=== PATIENT | male | born 1985 | race American Indian/Alaskan Native ===

== ENCOUNTER 2020-03-06 15:35 | Emergency (ER) | payer SELFPAY ==
[2020-03-06 15:52] VITALS: BP 130/95
[2020-03-06 17:08] LABS: Bilirubin,Urine NEG (Negative); Blood,Urine NEG (Negative); Color,Urine Straw (Yellow); Mucus,Urine FEW /HPF; Protein,Urine <15 mg/dL mg/dL (Negative); Urobilinogen,Urine < 2.0 mg/dL (<2.0)
[2020-03-06 17:10] LABS: Basophils % (Auto) 0.5 % (0.0-1.8); Eosinophils # (Auto) 0.5 K/mm3 (0.0-0.4); Eosinophils % (Auto) 5.5 % (0.0-4.3); Hematocrit 46.9 % (35.5-45.6); Hemoglobin 15.6 gm/dl (11.8-15.2); Lymphocytes # (Auto) 1.8 K/mm3 (1.2-5.4); Lymphocytes % (Auto) 20.5 % (13.4-35.0); Mean Corpuscular HGB Conc 33 % (32-34); Mean Corpuscular Volume 85 fl (84-94); Monocytes % (Auto) 11.1 % (0.0-7.3); Platelet Count 229 K/mm3 (140-440); Red Cell Distribution Width 14.1 % (13.2-15.2)
[2020-03-06 17:35] LABS: Alanine Aminotransferase 27 units/L (7-56); Albumin 4.4 g/dL (3.9-5); BUN/Creatinine Ratio 10; Blood Urea Nitrogen 12 mg/dL (9-20); Calcium 9.5 mg/dL (8.4-10.2); Hemolysis Index 11
--- NOTE | 2020-03-06 20:46 | Emergency Department Report ---
ED Abdominal Pain HPI - General Chief Complaint: Abdominal Pain Stated Complaint: DIARRHEA,HERNIA Time Seen by Provider: 03/06/20 20:27 Source: patient Mode of arrival: Ambulatory Limitations: No Limitations - History of Present Illness Initial Comments: 34-year-old -[place] male with no significant past medical history presents emergency department complaining with 2 to 3-month history of fluctuating and waxing and waning left-sided and lower quadrant crampy/aching abdominal pain associated with bouts of diarrhea and normal stooling of an u nknown etiology. Reports no hemoptysis, no hematemesis, no hematochezia, no melena. Ports no fever, chills, sweats no chest pain or palpitations. States his dad of some gastrointestinal issues for which she cannot recall the name and he is worried that he may be having some of the same symptoms. He sought treatment in emergency department x3 but did not stay for the results due to anxiety. He reports having a smoking history but no other habits MD Complaint: abdominal pain - Related Data Previous Rx's Medication Instructions Recorded Last Taken Type Hyoscyamine Subl [Levsin Sl 0.125 0.125 mg SL Q4HR PRN #20 tablet 03/07/20 Unknown Rx TAB] Ondansetron [Zofran Odt] 4 mg PO Q8HR #10 tab.rapdis 03/07/20 Unknown Rx Allergies Allergy/AdvReac Type Severity Reaction Status Date / Time No Known Allergies Allergy Unverified 03/06/20 15:50 ED Review of Systems ROS: Stated complaint: DIARRHEA,HERNIA Other details as noted in HPI Comment: All other systems reviewed and negative ED Past Medical Hx - Past Medical History Hx Hypertension: Yes - Surgical History Past Surgical History?: No - Social History Smoking Status: Current Every Day Smoker Substance Use Type: Alcohol - Medications Home Medications: Home Medications Medication Instructions Recorded Confirmed Last Taken Type Hyoscyamine Subl [Levsin Sl 0.125 0.125 mg SL Q4HR PRN #20 tablet 03/07/20 Unknown Rx TAB] Ondansetron [Zofran Odt] 4 mg PO Q8HR #10 tab.rapdis 03/07/20 Unknown Rx ED Physical Exam - General Limitations: No Limitations General appearance: alert, in no apparent distress - Head Head exam: Present: atraumatic, normocephalic - Eye Eye exam: Present: normal appearance, PERRL, EOMI Pupils: Present: normal accommodation - ENT ENT exam: Present: normal exam, mucous membranes moist - Neck Neck exam: Present: normal inspection, full ROM - Respiratory Respiratory exam: Present: normal lung sounds bilaterally. Absent: respiratory distress, rales, rhonchi, decreased breath sounds, prolonged expiratory - Cardiovascular Cardiovascular Exam: Present: regular rate, normal rhythm. Absent: systolic murmur, diastolic murmur, rubs, gallop - GI/Abdominal GI/Abdominal exam: Present: soft, normal bowel sounds - Rectal Rectal exam: Present: deferred - Extremities Exam Extremities exam: Present: normal inspection - Back Exam Back exam: Present: normal inspection - Neurological Exam Neurological exam: Present: alert, oriented X3 - Psychiatric Psychiatric exam: Present: normal affect, normal mood - Skin Skin exam: Present: warm, dry, intact, normal color. Absent: rash ED Course Vital Signs 03/06/20 15:50 Temperature 98.1 F Pulse Rate 71 Respiratory 16 Rate Blood Pressure 130/95 O2 Sat by Pulse 98 Oximetry ED Medical Decision Making - Lab Data Result diagrams: 03/06/20 16:45 03/06/20 16:45 - Radiology Data Radiology results: report reviewed Referring Physician:JANET VIGILPatient Name:RENAY HURTADOPatient ID:[id number] of :[id number]:MaleAccession:[id number] Date:[id number] Status:[place] [id number] Cat Scan Report Signed Patient: RENAY HURTADO MR#: [id number] : 1985 Acct:[id number] Age/Sex: 34 / M ADM Date: 03/06/20 Loc: ED Attending Dr: Ordering Physician: CANDACE KERR Date of Service: 03/06/20 Procedure(s): CT abdomen pelvis w con Accession Number(s): [id number] cc: CANDACE KERR CT abdomen pelvis w con INDICATION: Lower ABD Pain. TECHNIQUE: All CT scans at this location are performed using the following dose modulation technique: Automated exposure control. CONTRAST: Omnipaque 300, 100 cc IV injection. COMPARISON: None available. CT ABDOMEN: The parenchymal organs are unremarkable in appearance. Negative for abdominal mass, fluid or inflammation. The bowel is nondilated or thickened. CT PELVIS: The appendix is normal. Negative for pelvic mass, fluid or inflammation. IMPRESSION: Negative for obstruction or localized inflammation. Signer Name: Ricardo Marie MD Signed: 03/07/2020 12:03 AM Workstation Name: [id number] Transcribed By: ES Dictated By: Ricardo Marie MD Electronically Authenticated By: Ricardo Marie MD Signed Date/Time: 03/07/20 0003 DD/ 2359 TD/TT - Medical Decision Making This patient presents with abdominal pain of unclear etiology. A CT scan was p erformed to evaluate for potential causes of the abdominal pain, however, neither the clinical exam nor the CT has identified an emergent etiology for the abdominal pain. Specifically, given the benign exam, the laboratory studies, and unremarkable CT, I have a very low suspicion for appendicitis, ischemic bowel, bowel perforation, or any other life threatening disease. Patient is ambulatory no acute distress tolerating oral with no complications. I have discussed with the patient the level of uncertainty with undifferentiated abdominal pain and clearly explained the need to follow-up as noted on the discharge instructions, or return to the Emergency Department immediately if the pain worsens, develops fever, persistent and uncontrollable vomiting, or for any new symptoms or concerns. Critical care attestation.: If time is entered above; I have spent that time in minutes in the direct care of this critically ill patient, excluding procedure time. ED Disposition Clinical Impression: Abdominal pain Disposition: DC-01 TO HOME OR SELFCARE Is pt being admited?: No Does the pt Need Aspirin: No Condition: Stable Instructions: Abdominal Pain (ED), Acute Abdominal Pain (ED) Prescriptions: Hyoscyamine Subl [Levsin Sl 0.125 TAB] 0.125 mg SL Q4HR PRN #20 tablet PRN Reason: Spasms Ondansetron [Zofran Odt] 4 mg PO Q8HR #10 tab.rapdis Referrals: [facility] [Provider Group] - 3-5 Days
--- NOTE | 2020-03-07 00:07 | Cat Scan Report ---
CT abdomen pelvis w con INDICATION: Lower ABD Pain. TECHNIQUE: All CT scans at this location are performed using the following dose modulation technique: Automated exposure control. CONTRAST: Omnipaque 300, 100 cc IV injection. COMPARISON: None available. CT ABDOMEN: The parenchymal organs are unremarkable in appearance. Negative for abdominal mass, fluid or inflammation. The bowel is nondilated or thickened. CT PELVIS: The appendix is normal. Negative for pelvic mass, fluid or inflammation. IMPRESSION: Negative for obstruction or localized inflammation. Signer Name: Ricardo Marie MD Signed: 03/07/2020 12:03 AM Workstation Name: [id number]
== END 2020-03-07 00:32 | disposition home or self-care (01) ==
LOC: ED 15:35
DX: R10.32 Left lower quadrant pain (principal); I10 Essential (primary) hypertension; F17.200 Nicotine dependence, unspecified, uncomplicated; Z79.899 Other long term (current) drug therapy
CPT/HCPCS: 36415; 74177; 80053; 81001; 83690; 85025; 99284; Q9967